=== PATIENT | female | born 1950 | race Asian ===

== ENCOUNTER 2023-11-10 19:28 | Emergency (ER) | payer OTHER, SELFPAY ==
[2023-11-10 19:32] VITALS: BP 136/88
[2023-11-10 20:21] VITALS: BMI 18.9
[2023-11-10 20:23] VITALS: BP 131/79
[2023-11-10 20:41] LABS: % Basophils 1.1 % (0-2); % Eosinophils 3.4 % (0-6); % Immature Granulocytes 0.2 % (0-0.5); % Lymphocytes 33.9 % (20.5-51.1); % Monocytes 10.1 % (1.7-9.3); % Neutrophils 51.3 % (42.2-75.2); Absolute Basophils 0.1 10^3/uL (0-0.2); Absolute Eosinophils 0.2 10^3/uL (0-0.7); Absolute Lymphocytes 1.9 10^3/uL (1.2-3.4); Absolute Monocytes 0.6 10^3/uL (0.1-0.6); Absolute Neutrophils 2.9 10^3/uL (1.4-6.5); Hemoglobin 12.7 g/dL (12.0-16.0); Mean Corp Hgb Conc. 35.3 g/dL (33.0-37.0); Mean Corpuscular Hgb 30.1 pg (27.0-31.0); Mean Corpuscular Volume 85.3 fL (81.0-99.0); Mean Platelet Volume 10.6 fL (7.4-10.4); Nucleated Red Blood Cells % 0 %; Platelet Count 183 10^3/uL (130-400); Red Blood Cell Count 4.22 10^6/uL (4.20-5.40); Red Cell Dist. Width 12.6 % (11.5-14.5); White Blood Cell Count 5.7 10^3/uL (4.8-10.8)
[2023-11-10 20:44] LABS: Urine Albumin Negative (Neg - Trace); Urine Bilirubin Negative (Negative); Urine Character Clear (Clear); Urine Color Yellow; Urine Glucose Negative (Negative); Urine Ketone Negative (Negative); Urine Leukocyte Trace (Negative); Urine Nitrite Negative (Negative); Urine Occult Blood Negative (Negative); Urine Urobilinogen Negative (Neg - 1+)
[2023-11-10 20:54] LABS: Urine Bacteria Few (Negative); Urine Red Blood Cell 0-2 /HPF (0-2); Urine White Cell 0-2 /HPF (0-5)
[2023-11-10 20:55] LABS: Lactic Acid 1.1 mmol/L (0.7-2.0)
[2023-11-10 21:00] VITALS: BP 115/72
[2023-11-10] MEDS: NSS 1000 IV (21:05)
--- NOTE | 2023-11-10 21:11 | ED.GENMED ---
History of Present Illness
General
Chief Complaint: Fever
Source: patient, family (daughter) and interpreter deaf (daughter)
Exam Limitations: other (Language barrier with patient. )
Time Seen by Provider: 11/10/23 20:10
History of Present Illness
History of Present Illness:
This is a 73 year old female that comes in with c/o headache, dizziness, neck pain and weakness. Daughter states that today she woke with right sided neck pain. State that she also had a headache with some dizziness. States that she felt weakn.
States that she messaged her neck and it then felt like flu like symptoms. Then today she started with chills so she took Cold medication and rested. Stae that she felt better. Then tonight about 7pm she started with chest pain and weakness in her
arms and legs bilaterally. States that she also felt dizzy. States that her chest pain is gone but she still has a headache .Denies any fever, chills, SOB, abd pain, nausea, vomiting, diarrhea, dizziness at this time, urinary burning.
Past History
Past History
ED Past Medical History: GERD, HTN and Hypercholesterolemia
ED Past Surgical History: Appendectomy
Social History
Tobacco: Non-smoker
Alcohol: None
Drug: None
Personal:
Living: with family
Review of Systems
Review of Systems
All Other Systems: ROS reviewed and negative except as documented in HPI and ROS
Constitutional: Reports no symptoms; Denies fever or chills
EENT: Reports no symptoms
Respiratory: Reports no symptoms; Denies cough or trouble breathing
Cardiac: Reports chest pain
ABD/GI: Reports no symptoms; Denies abdominal pain, nausea, vomiting or diarrhea
: Reports no symptoms; Denies dysuria, frequency or urgency
Musculoskeletal: Reports no symptoms
Skin: Reports no symptoms
Neurological: Reports dizzy, headache and weakness
Psychiatric: Reports no symptoms
Phy Exam
General Physical Exam
General Presentation: well appearing and no apparent distress
General age: appears stated age
General Skin: warm and dry
General Habitus: elderly
General Mental: alert
General Hydration: dry mucous membranes
ENT Exam
ENT Exam: TM's normal, pharynx normal and neck supple
Eye Exam
Eye Exam: EOMI
Cardiovascular Exam
Cardiovascular Exam: regular rate/rhythm, no edema, no murmur and normal peripheral pulses
Pulmonary Exam
Pulmonary Exam: lungs clear, no respiratory distress, no rales, chest non tender, no crackles, no rhonchi, no wheezing and no cough
Gastrointestinal Exam
Gastrointestinal Exam: normal bowel sounds, non tender, soft, no organomegaly, no pulsatile mass and non distended
Musculoskeletal Exam
Musculoskeletal Exam: full ROM and no edema
Skin Exam
Skin Exam: normal color, warm/dry, no rash and no petechia
Psychiatric Exam
Psychiatric Exam: normal mood/affect
Course
Orders/Labs/Results
Orders:
Orders
11/10/23 19:40
Electrocardiogram (*1) Urgent
Reason for Study: Other
Other Reason for Exam: Possible Sepsis
Cardiac Monitoring- Treatment ONCE
EKG- Treatment ONCE
IV Insert/Care/Rem.- Treatment PRN
O2 Therapy [RESP] Urgent
Titrate/Wean O2 to maintain O2 sat greater than (%): 93
Special Instructions: TO MAINTAIN CONTINUOUS O2 SATS > OR = 93%
Pulse Ox/cont/shift [RESP] Urgent
Quantity: 1
Special Instructions: CONTINUOUS
11/10/23 19:42
Chest [CR Chest - 2 Views ] Urgent
Comment:
Reason For Exam: chest pain
11/10/23 20:19
COVID-19 Antigen Urgent
Source: Nasal Swab
Complete Blood Count/With Diff Urgent
Comprehensive Metabolic Panel Urgent
Lactic Acid Q4H
Comment: ON ICE, CANCEL 2ND ORDER IF FIRST LACTIC ACID LEVEL <2
Urinalysis Reflex To Culture Urgent
Date Specimen was Collected: 11/10/23
Time Specimen was Collected: 19:40
Urine Microscopic Reflex Cult Urgent
11/10/23 20:56
CT Head W/o Iv Contrast Urgent
Comment:
Reason For Exam: Dizziness, weakness
0.9% Sodium Chloride 1000 ml [Nss] 1,000 ml IV BOLUS
11/10/23 21:15
Troponin I Urgent
Abnormal Lab Results
11/10/23
20:19
Hct 36.0 L %
(37.0-47.0)
MPV 10.6 H fL
(7.4-10.4)
Monocytes % 10.1 H %
(1.7-9.3)
Glucose 103 H mg/dl
(70-99)
Leukocyte Esterase Rfl Trace A
(Negative)
Urine Bacteria (Reflex) Few A
(Negative)
11/10/23 20:19
11/10/23 20:19
Urine negative for infection, Lactic acid normal at 1.1, CBC normal. COVID negative
Vital Signs
Initial and Last Documented VS:
Initial Vital Signs
Temp Pulse Resp BP Pulse Ox
98 F 87 20 136/88 97
11/10/23 19:32 11/10/23 19:32 11/10/23 19:32 11/10/23 19:32 11/10/23 19:32
Last Documented Vital Signs
Temp Pulse Resp BP Pulse Ox
98 F 57 18 103/71 99
11/10/23 19:32 11/10/23 23:00 11/10/23 23:00 11/10/23 23:00 11/10/23 22:00
MDM/Problems Addressed
Differential Diagnosis Includes:
Viral syndrome, COVID,
MDM/Problems Addressed:
This is a 73 year old female that comes in with c/o weakness, flu like symptoms, Headache and chest pain.
Will get abs, CT head, Urine and given IV fluids.
Back into see patient. Patient states that she is feeling better according to daughter. Explained that this may be a viral illness as patient blood work is normal along with her urine. CT of the head is negative, and Her Troponin is normal.
Encouraged patient to increase her water intake. Follow up with the family doctor. Return with any concerns.
Chronic conditions affecting care:
NA
Acute Exacerbation and/or Progression of Chronic Illness:
NA
*Radiology
Radiology exam reviewed: radiology read reviewed (Head CT-No acute intracranial abnormality noted. Chest-Tiny left pleural effusion. New. )
*Pulse Oximetry
Patient hypoxic: no
*Chute Loader Interpretation
Rate: normal
Heart Rate: 64
Rhythm: sinus
*Critical Care Note
Total Time (30-74mins, 75-104mins- exclusive of procedures): Not Applicable
ED Attending Note
-
Portions of this chart may have been created with voice recognition software.� Occasional wrong word or��sound alike� substitutions may have occurred due to the inherent limitations of voice recognition software.
Discharge Plan
Departure
Patient Disposition: Home (Routine Discharge)
Date of Disposition: 11/10/23
Time of Disposition: 23:18
Patient with high blood pressure during this ER visit?: No
Condition: Good
Covid-19: Negative COVID-19
Discharge Problem:
Acute viral syndrome
Instructions: Generalized Weakness (DC), Viral Syndrome (DC)
Prescriptions:
No Action
Unobtainable
0
Referrals:
Rios Aguilar MD [Family Provider] - Follow up in 2-3 days
Activity Restrictions/Additional Instructions:
As discussed, your blood work is normal, your urine is negative for infection, you are COVID negative. Your CT of the head is normal and your chest x-ray shows a very slightly pleural effusion on the left. This is a little extra fluid. This may go
away by itself. Please follow up with the family doctor for recheck in the next 2-3 days. You may use Ibuprofen 600mg every 6 hours for pain. IF YOU HAVE ANY OTHER CONCERNS PLEASE RETURN TO THE EMERGENCY ROOM.
Interventions
Interventions:
*Risk Screen - Suicide Last Done: 11/10/23 19:32
*General Assessment Last Done: 11/10/23 19:32
*Neglect/Abuse Screening Last Done: 11/10/23 19:32
ED- Fall Risk Assessment Last Done: 11/10/23 19:32
*ED COVID-19 Vaccine History Last Done: 11/10/23 19:32
ED- Cardiac Assessment Last Done: 11/10/23 20:52
ED- Neurological Assessment Last Done: 11/10/23 20:52
ED- Pulmonary Assessment Last Done: 11/10/23 20:52
ED-Skin Assessment Last Done: 11/10/23 20:52
Discharge Date and Time
Print Language: TELUGU
[2023-11-10 21:13] LABS: ALT (SGPT) 21 U/L (0-35); AST (SGOT) 27 U/L (14-36); Albumin 4.7 g/dl (3.5-5.0); Alkaline Phosphatase 58 U/L (38-126); Blood Urea Nitrogen 14 mg/dl (7-17); Calcium 9.2 mg/dl (8.4-10.2); Carbon Dioxide 28 mmol/L (22-30); Chloride 104 mmol/L (98-107); Estimated Creatinine Clearance 49 ml/min; Glucose 103 mg/dl (70-99); Potassium 4.9 mmol/L (3.5-5.1); Sodium 141 mmol/L (135-145); Total Bilirubin 0.8 mg/dl (0.2-1.3); Total Protein 7.6 g/dl (6.3-8.2); eGFR > 60.00
[2023-11-10 21:21] LABS: COVID-19 Antigen Negative (Negative)
[2023-11-10 21:46] LABS: Troponin I < 0.012 ng/ml
[2023-11-10 22:00] VITALS: BP 136/78
[2023-11-10 23:00] VITALS: BP 103/71
== END 2023-11-10 23:34 | disposition home or self-care (01) ==
LOC: EMR 19:28
PROVIDERS: Clinical Nurse Specialist Family Health; Emergency Medicine; EMERGENCY PHYSICIAN Emergency Medicine; FAMILY PHYSICIAN Internal Medicine
DX: B34.9 Viral infection, unspecified (principal); Z11.52 Encounter for screening for COVID-19
CPT/HCPCS: 99285; 96360; 70450; 71046; 80053; 81003; 81015; 83605; 84484; 85025; 87811; 93005